=== PATIENT | female | born 1980 | race Caucasian/White ===

== ENCOUNTER 2024-01-26 11:45 | Emergency (ER) | payer OTHER ==
[2024-01-26 12:08] VITALS: BP 143/74; PULSE 75; RESP 16; TEMP 98.6; BMI 30.6
[2024-01-26] MEDS ORDERED: KETOROLAC TROMETHAMINE 30 MG/1 ML VIAL ONE (12:45)
[2024-01-26] MEDS: KETOROLAC TROMETHAMINE 30 MG/1 ML VIAL IM ONE (12:49)
== END 2024-01-26 13:53 | disposition home or self-care (01) ==
LOC: JERFT 11:45
PROC: 3E0133Z Introduction of Anti-inflammatory into Subcutaneous Tissue, Percutaneous Approach (ICD-10-PCS; principal; 2024-01-26)
DX: S93.492A Sprain of other ligament of left ankle, initial encounter (principal); X50.1XXA Overexertion from prolonged static or awkward postures, initial encounter; Y93.01 Activity, walking, marching and hiking
CPT/HCPCS: 73610-TC-LT-FY; 99284-25